=== PATIENT | female | born 1995 | race Caucasian/White ===

== ENCOUNTER 2018-05-13 17:42 | Inpatient (IN) ==
[~2018-05-13 17:42] MED LIST: MISOPROSTOL 100 MCG TABLET VG PRN; ONDANSETRON HCL/PF 2 MG/ML VIAL IV PRN; OXYTOCIN/DEXTROSE 5%-WATER 30 UNITS/500 ML BAG IV ONE; RINGER'S SOLUTION,LACTATED 1,000 ML IV ONE; RINGER'S SOLUTION,LACTATED 1,000 ML IV PRN
[2018-05-13 18:25] LABS: Albumin * 2.9 gm/dl (3.4-5.0); Anion Gap 16.7 mmol/L (6.8-13.8); BUN/Creatinine Ratio 17.6 (9.0-21.6); Bilirubin, Total 0.2 mg/dL (0.0-1.1); Ca. Corrected For Albumin 9.8 mg/dL (8.4-10.2); Calcium * 9.2 mg/dL (7.9-10.9); Carbon Dioxide 22.1 mmol/L (24-32.6); Potassium 3.8 mmol/L (3.4-4.6); Total Protein 6.5 gm/dL (6.2-8.2)
[2018-05-13 19:30] LABS: Cocaine Ur Negative (NEGATIVE); Urine Barbiturate Negative (NEGATIVE); Urine Benzodiazepines Negative (NEGATIVE); Urine Opiates Negative (NEGATIVE); Urine PCP Negative (NEGATIVE); Urine THC Negative (NEGATIVE)
--- NOTE | 2018-05-14 12:46 | HP ---
Chief Complaint - Chief Complaint Date of Service: 05/14/18 Time of Service: 12:46 Chief Complaint: Medical induction of labor due to IHCP History of Present Illness: 22 yo at 36 1/7 weeks presents to L&D for induction of labor due to worsening s/s of IHCP. Patient began having s/s of IHCP at around 32 wks and was started on ursodiol 300mg BID which failed to control her symptoms. The dose was increased to TID which gave her improvement of body pruritis but not from the soles of her feet at night. She was given a course of betamethasone on 05/07, 05/08. She was on Keflex qHS for UTI prophylaxis but changed to macrodantin due to recurrent UTIs - this was stopped on 05/07. This complicated by recurrent UTIs, kidney stones, migraines, IHCP, fall, h/o anxiety/depression - situational (2014), and Arnold-Chiari malfor mation - type II. Rh positive Rubella immune GBS negative Medical History (Last Reviewed 05/14/18 @ 22:12 by Timmy Zuniga DO) ADHD Onset Date: Unknown Anemia Onset Date: 03/19/18 w/ Anxiety Onset Date: Unknown Tx'd with Buspar and Zoloft- no meds since 2014 Arnold-Chiari malformation, type II Onset Date: ~2007 No neurologist at this time Bronchitis Onset Date: Unknown Depression Tx'd with Zoloft- no meds since 2014. Intrahepatic cholestasis of Onset Date: 05/07/18 Kidney stone Onset Date: Unknown Migraine with aura Onset Date: ~2007 Miscarriage Sinusitis Onset Date: 11/26/16 Surgical History: Surgical History (Last Reviewed 05/14/18 @ 22:12 by Timmy Zuniga DO) Hx of lithotripsy Onset Date: 2014 Left kidney- [facility] [place] Family History: Family History (Last Reviewed 05/14/18 @ 22:13 by Timmy Zuniga DO) Mother Leaky heart valve Depression Father Alive and well Grandmother Diabetes maternal great grandmother Glaucoma Alzheimers disease Grandmother Brain aneurysm paternal Social History: Preferred Language Georgian Smoking Status Never smoker Psych History Hx of Anxiety,Hx of Depression (Last Updated 05/11/18 @ 16:32 by Timmy Staudte, DO) No Social History Section defined Review Of Systems (GEN) - Review of Systems Generalized/Overall Review: Present: No Symptoms Reported EENTM: Present: No Symptoms Reported Respiratory: Present: No Symptoms Reported Cardiac: Present: No Symptoms Reported Abdominal: Present: No Symptoms Reported Genitourinary: Present: No Symptoms Reported Musculoskeletal: Present: No Symptoms Reported Neurological: Present: No Symptoms Reported Skin: Present: Other - pruritis mainly on soles of feet since ursodiol increased. Endocrine: Present: No Symptoms Reported Immunizations: IMMUNIZATION HX Immunizations Up to Date Yes History of Influenza Vaccine No Hx Pneumococcal Vaccination No Allergies/Adverse Reactions: Allergies Allergy/AdvReac Type Severity Reaction Status Date / Time coffee (Coffea arabica) AdvReac Intermediate Vomiting Verified 05/13/18 18:09 [coffee] Home Medications: HOME MEDICATIONS Vit #91/Fe Fum/FA/Dha [ + Dha Combo Pack] 1 ea PO DAILY #30 combo..pkg 09/28/17 [Last Taken 05/13/18] docusate sodium 100 mg capsule 100 mg PO DAILY PRN 02/12/18 [Last Taken Unknown] ferrous sulfate 325 mg (65 mg iron) tablet 325 mg PO BID #60 tab 04/23/18 [Last Taken 05/13/18] ursodiol 300 mg capsule 300 mg PO TID 30 Days #90 cap 05/07/18 [Last Taken 05/13/18] Exam - Exam Vital Signs: Vital Signs - Last Taken Temp 36.8 C 05/13/18 22:06 Pulse 117 H 05/13/18 22:06 Resp 18 05/13/18 22:06 BP 114/61 05/13/18 22:06 Pulse Ox 99 05/13/18 22:06 Constitutional: Present: Oriented x3, Cooperative, No distress Breasts: Present: Exam deferred Respiratory: Present: lungs clear, no respiratory distress Cardiovascular/Chest: Present: regular rate, rhythm, no edema Abdomen: Present: soft, nontender, no rebound tenderness, other - gravid /Rectal: Present: Other - cervix - cl/th/-3 Extremity: Present: no pedal edema, no calf tenderness Skin Exam: Present: normal color, warm/dry, no cyanosis. Absent: skin rash Diagnostic Studies: Abnormal Lab Results 05/13/18 Range/Units 18:05 Carbon Dioxide 22.1 L (24-32.6) mmol/L Anion Gap 16.7 H (6.8-13.8) mmol/L Est GFR (Non-Af Amer) 160 H D (60-130) mL/min ALT 7 L (19-67) U/L Albumin 2.9 L (3.4-5.0) gm/dl Laboratory Results Sodium 138 mmol/L (132-142) 05/13/18 18:05 Plasma Sodium 138 mmol/L (130-142) 05/13/18 18:05 Potassium 3.8 mmol/L (3.4-4.6) 05/13/18 18:05 Chloride 103 mmol/L (97-106) 05/13/18 18:05 Carbon Dioxide 22.1 mmol/L (24-32.6) L 05/13/18 18:05 Anion Gap 16.7 mmol/L (6.8-13.8) H 05/13/18 18:05 BUN 9 mg/dL (3-23) 05/13/18 18:05 Creatinine 0.51 mg/dL (0.4-1.4) 05/13/18 18:05 Est GFR (Non-Af Amer) 160 mL/min (60-130) H D 05/13/18 18:05 BUN/Creatinine Ratio 17.6 (9.0-21.6) 05/13/18 18:05 Random Glucose 81 mg/dL (70-110) 05/13/18 18:05 Calcium 9.2 mg/dL (7.9-10.9) 05/13/18 18:05 Calcium Adj for Albumin 9.8 mg/dL (8.4-10.2) 05/13/18 18:05 Total Bilirubin 0.2 mg/dL (0.0-1.1) 05/13/18 18:05 AST 12 U/L (0-48) 05/13/18 18:05 ALT 7 U/L (19-67) L 05/13/18 18:05 Alkaline Phosphatase 87 U/L (50-170) 05/13/18 18:05 Total Protein 6.5 gm/dL (6.2-8.2) 05/13/18 18:05 Albumin 2.9 gm/dl (3.4-5.0) L 05/13/18 18:05 Urine Opiates Screen Negative (NEGATIVE) 05/13/18 19:09 Barbiturate Screen Negative (NEGATIVE) 05/13/18 19:09 Ur Phencyclidine Scrn Negative (NEGATIVE) 05/13/18 19:09 Urine Amphetamine Negative (NEGATIVE) 05/13/18 19:09 U Benzodiazepines Scrn Negative (NEGATIVE) 05/13/18 19:09 Urine Cocaine Screen Negative (NEGATIVE) 05/13/18 19:09 Urine Marijuana (THC) Negative (NEGATIVE) 05/13/18 19:09 Assessment/Plan - Assessment/Plan (1) Intrahepatic cholestasis of Assessment: Admit for cytotec induction of labor. Problem: Acute (2) Recurrent UTI (urinary tract infection) complicating Problem: Acute (3) Arnold-Chiari malformation, type II Problem: Inactive (4) History of kidney stones Problem: Inactive (5) History of depression Problem: Inactive
--- NOTE | 2018-05-14 12:48 | PN ---
Progess Note - Interim Date: 05/14/18 Time: 12:46 Narrative: 05/14/18 12:46 Patient rating her contractions as occasional and mild Vital signs stable. Status post Cytotec 25 g 1 last p.m. FHT: 130 baseline, reassuring Contractions q 2-4 min Cervix: Fingertip/60/-2 Impression: Intrauterine at 36 1/7 weeks induction of labor for IHCP Plan: We'll add low dose Pitocin and place Navarrete bulb when dilated enough to insert easily.
--- NOTE | 2018-05-14 18:20 | PN ---
Progess Note - Interim Date: 05/14/18 Time: 18:17 Narrative: 05/14/18 18:18 Patient becoming more uncomfortable with contractions Vital signs stable. Pitocin at 10 mu/min. FHT: 130 baseline, reassuring Contractions q 2-3 min Cervix: 1/80/-2, Navarrete bulb placed and filled with 60 mL of sterile saline Impression: Intrauterine at 36 1/7 weeks, induction of labor for IHCP Plan: Continue present plan
[2018-05-14] MEDS ORDERED: BUPIVACAINE HCL/0.9 % NACL/PF 250 ML EP PRN (19:18)
[2018-05-14] MEDS ORDERED: ONDANSETRON HCL/PF 2 MG/ML VIAL IV PRN (19:18)
[2018-05-14] MEDS ORDERED: NALOXONE HCL 1 MG/1 ML SYRG IV PRN (19:18)
[2018-05-14] MEDS ORDERED: fentaNYL CITRATE/PF 50 MCG/ML AMPUL IT SCH (19:30)
[2018-05-14] MEDS ORDERED: LIDOCAINE HCL/EPINEPHRINE 10 ML VIAL IJ ONE (22:00)
[2018-05-14] MEDS ORDERED: LIDOCAINE HCL/EPINEPHRINE 20 ML VIAL IJ ONE ×2 (22:00→22:12)
[2018-05-14] MEDS ORDERED: LIDOCAINE HCL/EPINEPHRINE 20 ML VIAL ONE (22:32)
--- NOTE | 2018-05-14 23:26 | ANES ---
Anesthesia Pre Procedure Eval Vitals/Labs: Last Vital Signs Temp 36.8 C 05/13/18 22:06 Pulse 117 H 05/13/18 22:06 Resp 18 05/13/18 22:06 BP 114/61 05/13/18 22:06 Pulse Ox 99 05/13/18 22:06 HOME MEDICATIONS Vit #91/Fe Fum/FA/Dha [ + Dha Combo Pack] 1 ea PO DAILY #30 combo..pkg 09/28/17 [Last Taken 05/13/18] docusate sodium 100 mg capsule 100 mg PO DAILY PRN 02/12/18 [Last Taken Unknown] ferrous sulfate 325 mg (65 mg iron) tablet 325 mg PO BID #60 tab 04/23/18 [Last Taken 05/13/18] ursodiol 300 mg capsule 300 mg PO TID 30 Days #90 cap 05/07/18 [Last Taken 05/13/18] Allergies/Adverse Reactions: Allergies Allergy/AdvReac Type Severity Reaction Status Date / Time coffee (Coffea arabica) AdvReac Intermediate Vomiting Verified 05/13/18 18:09 [coffee] - Planned Procedure Planned Procedure: 36 wk induction Medication List Reviewed:: Yes Allergies Verified: Yes Medical History (Last Reviewed 05/14/18 @ 23:25 by Praveen Langston CRNA) ADHD Onset Date: Unknown Anemia Onset Date: 03/19/18 w/ Anxiety Onset Date: Unknown Tx'd with Buspar and Zoloft- no meds since 2014 Arnold-Chiari malformation, type II Onset Date: ~2007 No neurologist at this time Bronchitis Onset Date: Unknown Depression Tx'd with Zoloft- no meds since 2014. Intrahepatic cholestasis of Onset Date: 05/07/18 Kidney stone Onset Date: Unknown Migraine with aura Onset Date: ~2007 Miscarriage Sinusitis Onset Date: 11/26/16 Surgical History (Last Reviewed 05/14/18 @ 23:25 by Praveen Langston CRNA) Hx of lithotripsy Onset Date: 2014 Left kidney- [facility] Family History (Last Reviewed 05/14/18 @ 23:25 by Praveen Langston CRNA) Mother Leaky heart valve Depression Father Alive and well Grandmother Diabetes maternal great grandmother Glaucoma Alzheimers disease Grandmother Brain aneurysm paternal - Family Anesthesia History Family History:: no untoward family reactions to anesthesia - Airway/Neck/Teeth Within Normal Limits:: Yes Teeth Condition: intact Neck Exam: full range of motion Mallampatti Score: 2 Thyromental (T-M) distance: > 6 cm Mandibulo Hyoid distance: > 3 cm - Respiratory Respiratory Physical: lungs clear Smoking Status: Never smoker Sleep Apnea currently treated: No Sleep Apnea by current assessment: No - Cardiovascular Tolerate Activity: Good Heart Sounds: S1 & S2, Regular - Anesthesia Assessment and Plan ASA Class: PS, II, E Anesthesia Type Plan: Epidural Planned difficult intubation/equipment available: No
--- NOTE | 2018-05-14 23:26 | ANES ---
Post Anesthesia Discharge - Transfer of Care Transfer of Care handoff given to nurse: Yes - Anesthesia Post Op Note Anesthesia Post Op Note: Care transferred to OB RN
--- NOTE | 2018-05-14 23:27 | ANES ---
Post Anesthesia Assessment - Vital Signs Vitals: Last Vital Signs Temp 36.8 C 05/13/18 22:06 Pulse 117 H 05/13/18 22:06 Resp 18 05/13/18 22:06 BP 114/61 05/13/18 22:06 Pulse Ox 99 05/13/18 22:06 Airway Patency: Normal - Mental Status Level Of Consciousness: Awake - Pain Level Pain Score: 2 - N/V Assessment Nausea/Vomiting Presence: None Dehydration:: No
--- NOTE | 2018-05-14 23:29 | ANES ---
Anesthesia Procedure Note Procedure Note: ANESTHESIA PROCEDURE NOTE Date of Procedure: 05/14/2018 Time of procedure: 2244. Performed by: Felix Langston CRNA Bilingual Medical Assistant: None. Preprocedure diagnosis: Active labor. Post procedure diagnosis: Same. Procedure: Insertion of labor epidural. Indications: The patient is a 22-year-old prima para female in active labor requesting labor epidural for pain management. Findings: See below. Details of the procedure: The patient was placed in a sitting position. Back was prepped with DuraPrep. Patient was then draped in a sterile fashion. Lidocaine 1% was infiltrated to the skin and subcutaneous tissues at the level of the L3 4 interspace. The epidural space was identified using a 18-gauge Tuohy needle with [id number] technique. 20 mcg fentanyl was given intrathecally using a 27 ga. spinal needle. Epidural catheter was inserted without difficulty. Negative test dose was elicited using 3 mL of 2% preservative-free lidocaine plus epinephrine 1 200,000. The epidural catheter was then taped and secured in place. EBL: Minimal. Fluids: N/A. Specimen: N/A. Post procedure condition: The patient tolerated the procedure well. No complications were noted. Thank you for this consultation. Ferrer CRNA
--- NOTE | 2018-05-14 23:33 | PN ---
Progess Note - Interim Date: 05/14/18 Time: 23:27 Narrative: 05/14/18 23:27 Patient comfortable with epidural Vital signs stable. Pitocin was at 6 mu/min - turned off due to recurrent late decelerations. FHT:150 baseline, minimal variability following recurrent late decelerations which resolved with shutting off Pitocin, IV fluid bolus, and position changes. Contractions q 3 min Cervix: 8/80/-2, FSE and IUPC placed Impression: Intrauterine at 36-1/7 weeks, induction of labor for IHCP, recurrent late decelerations following epidural placement - improved since stopping Pitocin, IV fluid bolus, and position changes Plan: Will give fetus at least 30 minutes to recover. Anticipate normal spontaneous vaginal delivery soon
--- NOTE | 2018-05-15 00:34 | PN ---
Progess Note - Interim Date: 05/15/18 Time: 00:30 Narrative: 05/15/18 00:30 Patient [comfortable with epidural] Vital signs stable. FHT: 140 baseline, moderate variability with occasional acceleration, one late deceleration approximately 20 minutes ago. Contractions q 3 min Cervix: 8/80/-2 Impression: Intrauterine at 36 2/7 weeks. Induction of labor for IHCP Plan: Continue close observation for now. If decelerations return will proceed with primary LTCS. R/b/a discussed with patient and mother.
[2018-05-15] MEDS ORDERED: LIDOCAINE HCL/EPINEPHRINE 20 ML VIAL IJ ONE (01:27)
[2018-05-15] MEDS ORDERED: ceFAZolin SODIUM 1 GM VIAL IV PRN (03:05)
[2018-05-15] MEDS ORDERED: ceFAZolin SODIUM/DEXTROSE,ISO 2 GM/50 ML BAG IV ONE (03:10)
[2018-05-15] MEDS ORDERED: OXYTOCIN 20 UNITS in RINGER'S SOLUTION,LACTATED 1,000 ML IV ONE (03:25)
[2018-05-15] MEDS ORDERED: BISACODYL 10 MG SUPP.RECT RC PRN (04:10)
[2018-05-15] MEDS ORDERED: SENNOSIDES 8.6 MG TABLET PO PRN (04:10)
[2018-05-15] MEDS ORDERED: ONDANSETRON HCL/PF 2 MG/ML VIAL IV PRN (04:10)
[2018-05-15] MEDS ORDERED: oxyCODONE HCL/ACETAMINOPHEN 1 TAB TABLET PO PRN (04:10)
[2018-05-15] MEDS ORDERED: SIMETHICONE 80 MG TAB.CHEW PO PRN (04:10)
--- NOTE | 2018-05-15 04:19 | ANES ---
Post Anesthesia Discharge - Transfer of Care Transfer of Care handoff given to nurse: Yes - Discharge from PACU Discharge from PACU when meets criteria: Yes
--- NOTE | 2018-05-15 04:19 | ANES ---
Anesthesia Pre Procedure Eval Vitals/Labs: Last Vital Signs Temp 37.8 C 05/15/18 04:10 Pulse 117 H 05/15/18 04:10 Resp 24 H 05/15/18 04:10 BP 103/67 05/15/18 04:10 Pulse Ox 100 05/15/18 04:10 HOME MEDICATIONS Vit #91/Fe Fum/FA/Dha [ + Dha Combo Pack] 1 ea PO DAILY #30 combo..pkg 09/28/17 [Last Taken 05/13/18] docusate sodium 100 mg capsule 100 mg PO DAILY PRN 02/12/18 [Last Taken Unknown] ferrous sulfate 325 mg (65 mg iron) tablet 325 mg PO BID #60 tab 04/23/18 [Last Taken 05/13/18] ursodiol 300 mg capsule 300 mg PO TID 30 Days #90 cap 05/07/18 [Last Taken 05/13/18] Allergies/Adverse Reactions: Allergies Allergy/AdvReac Type Severity Reaction Status Date / Time coffee (Coffea arabica) AdvReac Intermediate Vomiting Verified 05/13/18 18:09 [coffee] - Planned Procedure Planned Procedure: Medication List Reviewed:: Yes Allergies Verified: Yes Medical History (Last Reviewed 05/15/18 @ 04:18 by Praveen Langston CRNA) ADHD Onset Date: Unknown Anemia Onset Date: 03/19/18 w/ Anxiety Onset Date: Unknown Tx'd with Buspar and Zoloft- no meds since 2014 Arnold-Chiari malformation, type II Onset Date: ~2007 No neurologist at this time Bronchitis Onset Date: Unknown Depression Tx'd with Zoloft- no meds since 2014. Intrahepatic cholestasis of Onset Date: 05/07/18 Kidney stone Onset Date: Unknown Migraine with aura Onset Date: ~2007 Miscarriage Sinusitis Onset Date: 11/26/16 Surgical History (Last Reviewed 05/15/18 @ 04:18 by Praveen Langston CRNA) Hx of lithotripsy Onset Date: 2014 Left kidney- [facility] Family History (Last Reviewed 05/15/18 @ 04:18 by Praveen Langston CRNA) Mother Leaky heart valve Depression Father Alive and well Grandmother Diabetes maternal great grandmother Glaucoma Alzheimers disease Grandmother Brain aneurysm paternal - Family Anesthesia History Family History:: no untoward family reactions to anesthesia - Airway/Neck/Teeth Within Normal Limits:: Yes Teeth Condition: intact Denture Type: None Neck Exam: full range of motion Mallampatti Score: 2 Thyromental (T-M) distance: > 6 cm Mandibulo Hyoid distance: > 3 cm - Respiratory Respiratory Physical: lungs clear Smoking Status: Never smoker Sleep Apnea currently treated: No Sleep Apnea by current assessment: No - Cardiovascular Tolerate Activity: Good Heart Sounds: S1 & S2, Regular - Anesthesia Assessment and Plan ASA Class: PS, II, E Anesthesia Type Plan: Epidural Planned difficult intubation/equipment available: No
--- NOTE | 2018-05-15 04:20 | OR ---
Operative Report - Dictated Report Narrative: Indication: 22-year-old 2 para 0 at 36 2/7 weeks admitted for induction of labor secondary to IHCP, progressed to 9 cm/-2 but developed recurrent severe late decelerations and therefore underwent a stat . Status: Stat Pre Operative Diagnosis: 36-2/7 weeks intrauterine . Intrahepatic cholestasis of . Nonreassuring tracing. Post Operative Diagnosis: Same. Procedure Preformed: Primary Low Transverse Section Surgeon: Say Zuniga DO Clinic Lpn: OR Staff Anesthesia: Epidural Estimated Blood Loss: 300 mL Urine Output: 500 mL Fluids Given: 800 mL of crystalloid Drains: Blackman to gravity Surgical Complications: None Specimens: Placenta to pathology Findings: Male born at 0314 on 05/15/2018 with Apgars 8 and 9, weighing 2804 g in cephalic presentation, vigorously crying on the mother's abdomen. Normal uterus, tubes, ovaries. Cord gases: V: 7.226, 49.7, 19.6, 20.2, -7.7, A: 7.160, 61.8, 10.5, 21.5, -8.1 Technique: The patient was taken to the operating room and placed in dorsal supine position with a left lateral tilt. After adequate epidural anesthesia, blackman catheter insertion,SCDs placed, and 2 g of Ancef given preoperatively, the abdominal cavity was entered via a modified Reddy-Patel incision. A transverse incision was made in the lower uterine segment and extended laterally and upwardly with digital traction. Clear fluid was noted upon amniotomy. The infant was delivered easily. The cord was clamped and cut and was handed off to awaiting mri tech. The placenta was allowed to deliver spontaneously. The uterus was cleared of clot and debris. Uterine incision was closed with 0 Vicryl using a running stitch. A second imbricating layer was placed. Excellent hemostasis was noted. The peritoneum was closed with a running 3-0 Monocryl. The same suture was used to approximate the rectus and pyramidalis muscles. The fascia was closed with a running 0 Vicryl. Cord gases were obtained from the section of cord collected at time of delivery. The subcutaneous layer was closed with a running 3-0 Monocryl. The same suture was used to approximate the subdermal layer. The skin was closed with a running 4-0 Monocryl and Dermabond. Sponge, lap, needle, and instrument count were correct x 2. Disposition: The patient was transferred to post anesthesia care unit in good condition
--- NOTE | 2018-05-15 04:20 | ANES ---
Post Anesthesia Assessment - Vital Signs Vitals: Last Vital Signs Temp 37.8 C 05/15/18 04:10 Pulse 117 H 05/15/18 04:10 Resp 24 H 05/15/18 04:10 BP 103/67 05/15/18 04:10 Pulse Ox 100 05/15/18 04:10 Airway Patency: Normal - Mental Status Level Of Consciousness: Awake - Pain Level Pain Score: 0 - N/V Assessment Nausea/Vomiting Presence: None Dehydration:: No
[2018-05-15] MEDS: IBUPROFEN 800 MG TABLET PO PRN ×3 (05:47→20:41)
[2018-05-15] MEDS: oxyCODONE HCL/ACETAMINOPHEN 1 TAB TABLET PO PRN ×3 (07:50→20:41)
[2018-05-15] MEDS: DOCUSATE SODIUM 100 MG CAPSULE PO SCH ×3 (13:03→20:42)
[2018-05-15] MEDS: ENOXAPARIN SODIUM 40 MG/0.4 ML SYRG SC SCH (14:20)
[2018-05-16] MEDS: IBUPROFEN 800 MG TABLET PO PRN ×3 (04:36→18:58)
[2018-05-16] MEDS: oxyCODONE HCL/ACETAMINOPHEN 1 TAB TABLET PO PRN ×3 (04:37→12:37)
[2018-05-16] MEDS: DOCUSATE SODIUM 100 MG CAPSULE PO SCH ×2 (08:50→21:54)
[2018-05-16] MEDS: ENOXAPARIN SODIUM 40 MG/0.4 ML SYRG SC SCH (12:10)
--- NOTE | 2018-05-16 13:40 | PN ---
Subjective - Date and Time Seen Date: 05/16/18 Time: 13:38 Objective - Vitals Vitals: Last Vital Signs Temp 36.3 C 05/16/18 08:00 Pulse 73 05/16/18 08:00 Resp 16 05/16/18 08:00 BP 104/56 05/16/18 08:00 Pulse Ox 99 05/16/18 08:00 Patient denies complaints. Tolerating regular diet. Ambulating without difficulty. Pain well controlled. Lochia wnl. Abdomen - soft, appropriately tender Incision - clean, dry, intact Uterus - firm, at umbilicus -2 No calf tenderness Impression: Post op day #1 s/p primary stat section. IHCP - resolved. Plan: Continue routine post-operative/ care. Cauti Physician Documentation - Urinary Catheter Management Urethral (Navarrete) Date of Insertion: 05/14/18 Time of Insertion: 23:30 Date of Removal: 05/15/18 Time of Removal: 15:15 Assessment/Plan - Problems/Diagnosis (1) Intrahepatic cholestasis of Problem: Acute (2) Recurrent UTI (urinary tract infection) complicating Problem: Acute (3) Arnold-Chiari malformation, type II Problem: Inactive (4) History of kidney stones Problem: Inactive (5) History of depression Problem: Inactive
[2018-05-17] MEDS: oxyCODONE HCL/ACETAMINOPHEN 1 TAB TABLET PO PRN ×2 (00:37→08:30)
[2018-05-17] MEDS: IBUPROFEN 800 MG TABLET PO PRN ×3 (00:37→17:09)
[2018-05-17] MEDS: DOCUSATE SODIUM 100 MG CAPSULE PO SCH ×2 (08:30→21:18)
[2018-05-17] MEDS: ENOXAPARIN SODIUM 40 MG/0.4 ML SYRG SC SCH (13:05)
--- NOTE | 2018-05-17 13:09 | PN ---
Subjective - Date and Time Seen Date: 05/17/18 Time: 13:08 Objective - Vitals Vitals: Last Vital Signs Temp 36.3 C 05/17/18 08:42 Pulse 74 05/17/18 08:42 Resp 18 05/17/18 08:42 BP 109/66 05/17/18 08:42 Pulse Ox 98 05/17/18 08:42 Patient denies complaints. Ambulating well. Tolerating regular diet. Pain well controlled. Lochia wnl. Abdomen - soft, appropriately tender Incision - clean, dry, intact Uterus - firm, at umbilicus -2 No calf tenderness Impression: Post op day #2 s/p primary stat section. Intrahepatic cholestasis of -resolved Plan: Continue routine post-operative/ care Cauti Physician Documentation - Urinary Catheter Management Urethral (Navarrete) Date of Insertion: 05/14/18 Time of Insertion: 23:30 Date of Removal: 05/15/18 Time of Removal: 15:15 Assessment/Plan - Problems/Diagnosis (1) Intrahepatic cholestasis of Problem: Acute (2) Recurrent UTI (urinary tract infection) complicating Problem: Acute (3) Arnold-Chiari malformation, type II Problem: Inactive (4) History of kidney stones Problem: Inactive (5) History of depression Problem: Inactive
[2018-05-18] MEDS: oxyCODONE HCL/ACETAMINOPHEN 1 TAB TABLET PO PRN (07:52)
[2018-05-18] MEDS: IBUPROFEN 800 MG TABLET PO PRN (07:52)
[2018-05-18 08:46] VITALS: BP 121/62
--- NOTE | 2018-05-18 15:03 | PN ---
Subjective - Date and Time Seen Date: 05/18/18 Time: 15:02 Objective - Vitals Vitals: Last Vital Signs Temp 36.6 C 05/18/18 07:55 Pulse 82 05/18/18 07:55 Resp 18 05/18/18 07:55 BP 121/62 05/18/18 07:55 Pulse Ox 98 05/18/18 07:55 Patient denies complaints. Ambulating without difficulty. Tolerating regular diet. Pain well controlled. Lochia wnl. Breast-feeding well Abdomen - soft, appropriately tender Incision - clean, dry, intact Uterus - firm, at umbilicus -3 No calf tenderness Impression: Post op day #3 s/p primary stat section. IHCP-resolved Plan: Routine discharge instructions Cauti Physician Documentation - Urinary Catheter Management Urethral (Navarrete) Date of Insertion: 05/14/18 Time of Insertion: 23:30 Date of Removal: 05/15/18 Time of Removal: 15:15 Assessment/Plan - Problems/Diagnosis (1) Intrahepatic cholestasis of Problem: Acute (2) Recurrent UTI (urinary tract infection) complicating Problem: Acute (3) Arnold-Chiari malformation, type II Problem: Inactive (4) History of kidney stones Problem: Inactive (5) History of depression Problem: Inactive
--- NOTE | 2018-05-26 11:42 | PN ---
Progess Note - Interim Date: 05/26/18 Time: 11:42 History for MU Definition: * The number of deliveries resulting in a live the patient experienced prior to current hospitalization * The previous delivery of live twins or any live multiple gestation is considered one live event. *If primagravida or nulliparous is documented select zero for the number of previous live births. Live Events: 0
== END 2018-05-18 13:30 | disposition home or self-care (01) | DRG 787 ==
LOC: OB 17:42
PROVIDERS: ADMIT Obstetrics & Gynecology; ATTEND Obstetrics & Gynecology
CPT/HCPCS: 36415; 59025; 74000; 74018; 80053; 80307; 88307